=== PATIENT | female | born 1990 | race Caucasian/White ===

== ENCOUNTER 2022-07-14 10:42 | Emergency (ER) | payer OTHER ==
[~2022-07-14] VITALS: Ht 149.9 cm; Wt 51.7 kg
[2022-07-14] MEDS ORDERED: NORFLEX100MG PO (11:42)
[2022-07-14] MEDS ORDERED: KETO10TA2 PO (11:42)
== END 2022-07-14 12:11 | disposition home or self-care (01) ==
LOC: ER 10:42
DX: M54.9 Dorsalgia, unspecified (principal); F41.9 Anxiety disorder, unspecified; R00.2 Palpitations

== ENCOUNTER 2022-10-01 10:33 | Emergency (ER) | payer OTHER ==
[~2022-10-01] VITALS: Ht 149.9 cm; Wt 49.4 kg
[~2022-10-01 10:33] MED LIST: KETO10TA2 PO; NORFLEX100MG PO
== END 2022-10-01 14:31 | disposition home or self-care (01) ==
LOC: ER 10:33
DX: B34.9 Viral infection, unspecified (principal)

== ENCOUNTER 2024-09-24 16:54 | Emergency (ER) | payer OTHER ==
[~2024-09-24] VITALS: Ht 149.9 cm; Wt 47.2 kg
[2024-09-24] MEDS ORDERED: SILVER SULFADIAZINE 50 GM JAR TOP ONE (18:45)
== END 2024-09-24 19:34 | disposition home or self-care (01) ==
LOC: ER 16:55
DX: S30.811A Abrasion of abdominal wall, initial encounter (principal); X58.XXXA Exposure to other specified factors, initial encounter; Y93.89 Activity, other specified; Y92.89 Other specified places as the place of occurrence of the external cause; Y99.9 Unspecified external cause status